=== PATIENT | male | born 1985 | race Two or more races ===

== ENCOUNTER 2020-01-13 14:30 | Emergency (ER) | payer BC, OTHER ==
[~2020-01-13] VITALS: Ht 185.4 cm; Wt 108.9 kg
[2020-01-13 14:42] VITALS: BP 177/81
--- NOTE | 2020-01-13 14:44 | NUR ---
ED Nurse Note:pt. was BIBA from work s/p fall, c/o right arm, left knee and back pain
[2020-01-13] MEDS ORDERED: traMADol 50mg tab ORAL ONE (15:00)
--- NOTE | 2020-01-13 15:24 | Diagnostic Imaging Report ---
Indication: Right wrist pain COMPARISON: None Findings: 3 views of the right wrist were obtained. No acute fractures, malalignment, erosions or periostitis are identified. Soft tissues are unremarkable. Impression: No acute findings.
--- NOTE | 2020-01-13 15:25 | Diagnostic Imaging Report ---
INDICATION: Knee Pain COMPARISON: None 3 views of the left knee were obtained. FINDINGS: No acute fracture, malalignment, or joint effusion are identified. Impression: Negative for acute injury
[2020-01-13] MEDS ORDERED: ROBAXIN-750750 MG PO (15:36)
[2020-01-13] MEDS ORDERED: IBUPROFEN600 MG ORAL (15:36)
--- NOTE | 2020-01-13 15:36 | Emergency Room Report ---
History of Present Illness General Chief Complaint: Multiple Trauma/Fall Source: Patient Present Illness HPI 34-year-old male presents to the emergency department complaining of 9 out of 10 severity diffuse back pain that is been progressive in addition to localized pain to the lateral right wrist and pain to the anterior lateral left knee. Patient reports he is beginning to have some discomfort in the neck musculature as well. Patient status post mechanical slip and fall at work prior to arrival. Patient reports he may have slightly bumped his head but his body broke his fall. Denies numbness tingling or loss of sensation or gross motor movements of the extremities, incontinence of bowel or bladder. Denies CP, Palpitations, LOC, AMS, dizziness, Changes in Vision, weakness or a sudden severe headache. He denies open wounds or bleeding. Patient denies visible swelling or obvious deformities. Patient denies having suspicion of any fractures in the neck or back. He reports he did hit the lateral aspect of his right wrist on a metal pole. Pain in the left knee exacerbated with standing/ walking. Allergies: Coded Allergies: No Known Allergies (Unverified , 01/13/20) Patient History Past Medical History: see triage record Past Surgical History: none Pertinent Family History: none Reviewed Nursing Documentation: PMH: Agreed; PSxH: Agreed Nursing Documentation-PMH Past Medical History: No History, Except For Hx Cardiac Problems: Yes - high cholesterol Hx Diabetes: Yes Review of Systems All Other Systems: negative except mentioned in HPI Physical Exam Vital Signs Date Time Temp Pulse Resp B/P (MAP) Pulse Ox O2 Delivery O2 Flow Rate FiO2 01/13/20 14:26 98.4 79 20 177/81 (113) 99 Room Air Sp02 EP Interpretation: reviewed, normal General Appearance: no apparent distress, alert, GCS 15, non-toxic Head: normocephalic, atraumatic Eyes: bilateral eye normal inspection, bilateral eye PERRL ENT: hearing grossly normal, normal voice Neck: full range of motion, tender lateral - bilateral trapezius ttp. no midline spinous process TTP Respiratory: chest non-tender, lungs clear, normal breath sounds, speaking full sentences Cardiovascular #1: regular rate, rhythm, normal capillary refill Cardiovascular #2: 2+ radial (R) Gastrointestinal: non tender, soft Genitourinary: normal inspection Musculoskeletal: normal range of motion, gait/station normal, tender - TTP diffusely in the lower back musculature, no localized bony ttp. TTP to the lateral aspect of the right wrist, mild swelling noted, no bruising, FROM with pain, no obious deformity, no snuff box tenderness. TTP to the anteriolateral aspects of the left knee. No obvious swelling, echymosis, or deformity noted. there is no increased laxity to a valgus or varus stress. anterior and posterior drawer sign is negative. Neurologic: alert, motor strength/tone normal, oriented x3, sensory intact, responsive, speech normal, grossly normal, no focal defects Psychiatric: judgement/insight normal Skin: normal color, normal inspection, other - no bruises, abrasions or lacerations Medical Decision Making PA Attestation Dr. Valencia is my supervising Physician whom patient management has been discussed with. Diagnostic Impression: Primary Impression: Contusion of multiple sites Additional Impressions: Cervical strain, acute Qualified Codes: S16.1XXA - Strain of muscle, fascia and tendon at neck level , initial encounter Muscle spasm of back Left knee sprain Qualified Codes: S83.92XA - Sprain of unspecified site of left knee, initial encounter Sprain of wrist, right Qualified Codes: S63.501A - Unspecified sprain of right wrist, initial encounter ER Course 34-year-old male presents to the emergency department complaining of 9 out of 10 severity diffuse back pain that is been progressive in addition to localized pain to the lateral right wrist and pain to the anterior lateral left knee. Patient reports he is beginning to have some discomfort in the neck musculature as well. Patient status post mechanical slip and fall at work prior to arrival. Patient reports he may have slightly bumped his head but his body broke his fall. Denies numbness tingling or loss of sensation or gross motor movements of the extremities, incontinence of bowel or bladder. Denies CP, Palpitations, LOC, AMS, dizziness, Changes in Vision, weakness or a sudden severe headache. He denies open wounds or bleeding. Patient denies visible swelling or obvious deformities. Patient denies having suspicion of any fractures in the neck or back. He reports he did hit the lateral aspect of his right wrist on a metal pole. Pain in the left knee exacerbated with standing/ walking. Ddx considered but are not limited to Fracture, dislocation, contusion, Sprain/ Strain/Spasm, acute head injury, concussion, subdural hematoma, muscle spasm just to name a few Vital signs: are WNL, pt. is afebrile. H&PE are most consistent with musculoskeletal injury will perform imaging to r/ o fractures/dislocations of the knee and right wrist. Low suspicion for fractures of the Neck or back. ORDERS: - X-ray Left knee 3 views, and Right Wrist 3 views - negative for fx, Dislocation, or significant soft tissue injury, per preliminary read in ED, and signed by TRENA Voss, my supervising physician has reviewed, and agrees with my interpretation. ED INTERVENTIONS: - Robaxin PO -Motrin PO - Right wrist Splint applied by submarine cable equipment technician. Pt. remains neurovascularly intact. -Cole wrap applied to the left knee by submarine cable equipment technician. Pt. remains neurovascularly intact. DISCHARGE: At this time pt. is stable for d/c to home. Will provide printed patient care instructions, and any necessary prescriptions. Care plan and follow up instructions have been discussed with the patient prior to discharge. Other X-Ray Diagnostic Results Other X-Ray Diagnostic Results #1: X-Ray ordered: Left Knee # of Views/Limited Vs Complete: 3 View Indication: Pain EP Interpretation: Yes TRENA Xray: Interpretation reviewed, by supervising MD, and agrees with findings. Interpretation: no dislocation, no soft tissue swelling, no fractures Impression: No acute disease Electronically Signed by: Lauren Voss PA-C Other X-Ray Diagnostic Results #2: X-Ray ordered: Right Wrist # of Views/Limited Vs Complete: 3 View Indication: Pain EP Interpretation: Yes TRENA Xray: Interpretation reviewed, by supervising MD, and agrees with findings. Interpretation: no dislocation, no soft tissue swelling, no fractures Impression: No acute disease Electronically Signed by: Lauren Voss PA-C Last Vital Signs Date Time Temp Pulse Resp B/P (MAP) Pulse Ox O2 Delivery O2 Flow Rate FiO2 01/13/20 14:42 79 20 Room Air 01/13/20 14:42 98.4 177/81 99 Status: improved Disposition: HOME, SELF-CARE Condition: Stable Scripts Ibuprofen* (MOTRIN*) 600 Mg Tablet 600 MG ORAL THREE TIMES A DAY, #30 TAB 0 Refills Prov: Lauren Voss 01/13/20 Methocarbamol* (ROBAXIN-750*) 750 Mg Tablet 750 MG PO QID, #28 TAB 0 Refills Prov: Lauren Voss 01/13/20 Departure Forms: Return to Work Return to Work Date: Jan 17, 2020 Work Restrictions: No Heavy Lifting, No Prolonged Standing Other Restrictions: light duty. May return Sooner if Symptoms have resolved. Return to Full Activity: Jan 23, 2020 Patient Instructions: Contusion, [id number], Knee Sprain, [id number], Wrist Sprain Additional Instructions: Take medications as directed. Follow up with a Primary Care Provider in 3-5 days, even if your symptoms have resolved. Return sooner to ED if new symptoms occur, or current symptoms become worse. - Please note that this Emergency Department Report was dictated using [employer] practice manager technology software, occasionally this can lead to erroneous entry secondary to interpretation by the dictation equipment. Lauren Voss Jan 13, 2020 15:35
--- NOTE | 2020-01-13 15:50 | NUR ---
ER DISCHARGE NOTE: Patient is cleared to be discharged per ERMD, pt is aox4, on room air, with stable vital signs. pt was given dc and prescription instructions, pt was able to verbalize understanding, pt is able to ambulate with steady gait. pt took all belongings.
[2020-01-13 15:52] VITALS: BP 177/81
== END 2020-01-13 16:00 | disposition home or self-care (01) ==
LOC: EDBD 14:30 → EMR 15:35
DX: S16.1XXA Strain of muscle, fascia and tendon at neck level, initial encounter (principal); S83.92XA Sprain of unspecified site of left knee, initial encounter; S63.501A Unspecified sprain of right wrist, initial encounter; M62.830 Muscle spasm of back; T14.8XXA Other injury of unspecified body region, initial encounter; E78.00 Pure hypercholesterolemia, unspecified; E11.9 Type 2 diabetes mellitus without complications; W01.198A Fall on same level from slipping, tripping and stumbling with subsequent striking against other object, initial encounter; Y93.9 Activity, unspecified; Y92.9 Unspecified place or not applicable
CPT/HCPCS: 29125; 99284